=== PATIENT | male | born 1960 | race African-American/Black ===

== ENCOUNTER 2021-05-19 18:35 | Emergency (ER) | payer SELFPAY ==
[~2021-05-19] VITALS: Ht 177.8 cm; Wt 82.0 kg
[2021-05-19 18:38] VITALS: BP 169/94
== END 2021-05-19 22:05 | disposition left against medical advice (07) ==
LOC: ER 18:35
DX: R55 Syncope and collapse (principal); F12.90 Cannabis use, unspecified, uncomplicated; I10 Essential (primary) hypertension
CPT/HCPCS: 99283